=== PATIENT | male | born 1965 | race Caucasian/White ===

== ENCOUNTER 2021-08-08 08:32 | Emergency (ER) | payer SELFPAY ==
[2021-08-08] MEDS ORDERED: methylPREDNISolone Sod Succ/PF 125 MG/2 ML VIAL ONE (09:05)
[2021-08-08] MEDS ORDERED: Morphine 2 MG/ML VIAL ONE (09:38)
[2021-08-08] MEDS ORDERED: Ondansetron PF 4 MG/2 ML Vial ONE (09:38)
[2021-08-08 09:43] LABS: #Monocytes 0.7 10x3/uL (0.0-1.1); #Neutrophils 3.4 10x3/uL (1.5-8.4); %Basophils 0.8 % (0.0-2.0); %Lymphocytes 17.1 % (18.0-47.0); %Monocytes 14.2 % (0.0-10.0); %Neutrophils 67.7 % (40.0-75.0); Hemoglobin 9.6 g/dL (13.5-17.5); Mean Corpuscular HGB CONC 29.1 g/dL (32.0-36.0); Mean Corpuscular Hemoglobin 20.9 pg (27.0-33.0); Mean Corpuscular Volume 71.7 fl (81.2-95.1); Mean Platelet Volume 9.3 fl (7.4-10.4); Platelet Count 378 10x3/uL (150-450); RBC Distribution Width 16.5 % (11.5-14.5); White Blood Cell (WBC) Count 5.1 10x3/uL (3.5-10.5)
[2021-08-08 10:00] LABS: ALT (SGPT) 11 U/L (8-55); AST (SGOT) 13 U/L (5-34); Albumin 3.5 g/dL (3.5-5.0); Alkaline Phosphatase 67 U/L (40-110); Anion Gap 12 mmol/L (10-20); BUN (Urea Nitrogen) 10 mg/dL (8.4-25.7); Bilirubin, Total 0.3 mg/dL (0.2-1.2); Calc. Creatinine Clearance 0 mL/min (70-130); Calcium 8.9 mg/dL (7.8-10.44); Carbon Dioxide 25 mmol/L (22-29); Chloride 103 mmol/L (98-107); Globulin 3.1 g/dL (2.4-3.5); Glucose 93 mg/dL (70-105); Lipase 60 U/L (8-78); Protein, Total 6.6 g/dL (6.0-8.3); Sodium 136 mmol/L (136-145)
[2021-08-08 10:29] LABS: Hypochromia SLIGHT = 6-15 cells (100X) (0-5/hpf); Microcytosis SLIGHT = 6-15 cells (100X) (0-5/hpf); Polychromasia SLIGHT = 2-3 cells (100X) (0-2/hpf)
[2021-08-08 10:30] LABS: Platelet Morphology Comment Appears Adequate
== END 2021-08-08 12:42 | disposition home or self-care (01) ==
LOC: CSHERS 08:32
DX: K51.90 Ulcerative colitis, unspecified, without complications (principal)
CPT/HCPCS: 80053; 83690; 85025; 96374; 96375; J2270; J2405; J2930

== ENCOUNTER 2021-08-29 13:22 | Inpatient (IN) | payer SELFPAY ==
[2021-08-29 14:59] LABS: #Monocytes 0.6 10x3/uL (0.0-1.1); %Basophils 0.3 % (0.0-2.0); %Eosinophils 0.3 % (0.0-6.0); %Lymphocytes 10.2 % (18.0-47.0); %Monocytes 6.9 % (0.0-10.0); Hemoglobin 9.5 g/dL (13.5-17.5); Mean Corpuscular HGB CONC 28.4 g/dL (32.0-36.0); Mean Corpuscular Hemoglobin 20.5 pg (27.0-33.0); Mean Platelet Volume 9.5 fl (7.4-10.4); Platelet Count 247 10x3/uL (150-450); RBC Distribution Width 18.6 % (11.5-14.5); Red Blood Cell (RBC) Count 4.64 10x6/uL (4.32-5.72); White Blood Cell (WBC) Count 8.6 10x3/uL (3.5-10.5)
[2021-08-29 15:10] LABS: INR-International Normal Ratio 0.9; PTT 21.9 sec (22.0-33.0); Prothrombin Time 9.8 sec (9.5-12.1)
[2021-08-29 15:16] LABS: ALT (SGPT) 21 U/L (8-55); AST (SGOT) 24 U/L (5-34); Acetaminophen Less than 10.0 mcg/mL (10.0-30.0); Albumin 3.7 g/dL (3.5-5.0); Alcohol Less than 10 mg/dL (Less than 10); Alkaline Phosphatase 73 U/L (40-110); Anion Gap 11 mmol/L (10-20); BUN (Urea Nitrogen) 10 mg/dL (8.4-25.7); Bilirubin, Total 0.2 mg/dL (0.2-1.2); Calc. Creatinine Clearance 0 mL/min (70-130); Calcium 8.6 mg/dL (7.8-10.44); Carbon Dioxide 26 mmol/L (22-29); Chloride 109 mmol/L (98-107); Globulin 2.8 g/dL (2.4-3.5); Glucose 87 mg/dL (70-105); Potassium 3.9 mmol/L (3.5-5.1); Protein, Total 6.5 g/dL (6.0-8.3); Salicylate Less than 8.0 mg/dL (15.0-30.0); Sodium 142 mmol/L (136-145)
[2021-08-29 15:42] LABS: Amphetamine Not Detected (NotDetected); Barbiturates Screen Not Detected (NotDetected); Benzodiazepine Screen Detected (NotDetected); Cocaine Metabolite Screen Not Detected (NotDetected); Methadone Not Detected (NotDetected); Methamphetamine Not Detected (NotDetected); Opiate Screen Not Detected (NotDetected); Oxycodone Screen Not Detected (NotDetected); Phencyclidine (PCP) Not Detected (NotDetected); THC/Cannabinoid Screen Detected (NotDetected); Tricyclic Screen Not Detected (NotDetected)
[2021-08-29] MEDS ORDERED: HYDROcodone/Acetaminophen 5/325 mg Tablet ONE (18:02)
[2021-08-29] MEDS ORDERED: Ondansetron PF 4 MG/2 ML Vial IVP PRN (18:33)
[2021-08-29] MEDS ORDERED: Acetaminophen 325 MG TAB PO PRN (18:33)
[2021-08-29 20:38] VITALS: BMI 24.3
[2021-08-29] MEDS ORDERED: Atorvastatin Calcium 40 MG TAB PO SCH (21:00)
[2021-08-29] MEDS: sulfaSALAzine 500 MG TAB PO SCH (21:19)
[2021-08-29] MEDS: Famotidine 20 MG TAB PO SCH (21:20)
[2021-08-29] MEDS: HYDROcodone/Acetaminophen 5/325 mg Tablet PO PRN (21:20)
[2021-08-30 04:55] LABS: Hemoglobin 8.4 g/dL (13.5-17.5); Mean Corpuscular HGB CONC 28.6 g/dL (32.0-36.0); Mean Corpuscular Hemoglobin 20.6 pg (27.0-33.0); Mean Corpuscular Volume 72.1 fl (81.2-95.1); Mean Platelet Volume 10.1 fl (7.4-10.4); Platelet Count 245 10x3/uL (150-450); RBC Distribution Width 18.3 % (11.5-14.5); Red Blood Cell (RBC) Count 4.08 10x6/uL (4.32-5.72); White Blood Cell (WBC) Count 7.1 10x3/uL (3.5-10.5)
[2021-08-30 04:57] LABS: Anion Gap 12 mmol/L (10-20); BUN (Urea Nitrogen) 7 mg/dL (8.4-25.7); Calc. Creatinine Clearance 140 mL/min (70-130); Calcium 8.2 mg/dL (7.8-10.44); Carbon Dioxide 23 mmol/L (22-29); Chloride 108 mmol/L (98-107); Glucose 141 mg/dL (70-105); Potassium 3.7 mmol/L (3.5-5.1); Sodium 139 mmol/L (136-145)
[2021-08-30] MEDS: HYDROcodone/Acetaminophen 5/325 mg Tablet PO PRN (06:39)
[2021-08-30] MEDS ORDERED: Ferrous Sulfate 325 MG TAB PO SCH (08:00)
[2021-08-30] MEDS: sulfaSALAzine 500 MG TAB PO SCH ×2 (08:27→14:05)
[2021-08-30] MEDS: Famotidine 20 MG TAB PO SCH (08:27)
[2021-08-30] MEDS ORDERED: Aspirin 81 mg Enteric Coated Tablet PO SCH (09:00)
[2021-08-30] MEDS ORDERED: Folic Acid 1 MG TAB PO SCH (09:00)
[2021-08-30 09:05] VITALS: TEMP 98.1
[2021-08-30 11:41] VITALS: BP 134/79
[2021-08-30] MEDS ORDERED: Ketorolac Tromethamine 30 MG/ML VIAL IVP SCH (13:00)
== END 2021-08-30 16:00 | disposition home or self-care (01) | DRG 312 ==
LOC: CSHERS 13:22 → CSHTELE 20:22 → OBSVTOIN 20:22
PROVIDERS: ADMIT Internal Medicine; ATTEND Internal Medicine
DX: R55 Syncope and collapse (principal); E86.0 Dehydration; F32.A Depression, unspecified; D64.9 Anemia, unspecified; Z87.19 Personal history of other diseases of the digestive system; Z88.1 Allergy status to other antibiotic agents; Z98.42 Cataract extraction status, left eye; Z98.41 Cataract extraction status, right eye
CPT/HCPCS: 36415; 70450; 70551; 71045; 80048; 80053; 80306; 80307; 84484; 85025; 85027; 85610; 85730; 93005; 93306; 93880; 94760; J1885

== ENCOUNTER 2022-01-15 19:50 | Emergency (ER) | payer SELFPAY ==
[~2022-01-15 19:50] MED LIST: Iopamidol 300 61% 100 ML VIAL FS ONE
[2022-01-15 21:10] LABS: Bilirubin Neg (Negative); Blood, Urine Negative (Negative); Clarity Clear (Clear); Glucose, Urine (Dipstick) Normal (Negative); Ketone, Urine Negative (Negative); Leukocyte Negative (Negative); Nitrite Negative (Negative); Protein, Urine (Dipstick) 15 mg/dl (Neg-Trace); Specific Gravity, Urine 1.025 (1.002-1.036); Urobilinogen Normal mg/dL (Less than 2)
[2022-01-15] MEDS ORDERED: Morphine 4 MG/ML VIAL ONE (21:15)
[2022-01-15] MEDS ORDERED: methylPREDNISolone Sod Succ/PF 125 MG/2 ML VIAL ONE (21:15)
[2022-01-15] MEDS ORDERED: Ondansetron PF 4 MG/2 ML Vial ONE (21:16)
[2022-01-15 21:17] LABS: #Basophils 0.1 10x3/uL (0.0-0.2); #Monocytes 0.9 10x3/uL (0.0-1.1); #Neutrophils 6.5 10x3/uL (1.5-8.4); %Basophils 0.7 % (0.0-2.0); %Eosinophils 0.1 % (0.0-6.0); %Lymphocytes 12.4 % (18.0-47.0); %Monocytes 10.6 % (0.0-10.0); Hemoglobin 9.8 g/dL (13.5-17.5); Mean Corpuscular HGB CONC 29.3 g/dL (32.0-36.0); Mean Corpuscular Hemoglobin 21.3 pg (27.0-33.0); Mean Corpuscular Volume 72.5 fl (81.2-95.1); Mean Platelet Volume 9.4 fl (7.4-10.4); Platelet Count 260 10x3/uL (150-450); RBC Distribution Width 22.4 % (11.5-14.5); Red Blood Cell (RBC) Count 4.61 10x6/uL (4.32-5.72); White Blood Cell (WBC) Count 8.6 10x3/uL (3.5-10.5)
[2022-01-15 21:19] LABS: ALT (SGPT) 17 U/L (8-55); AST (SGOT) 25 U/L (5-34); Albumin 4.2 g/dL (3.5-5.0); Alkaline Phosphatase 72 U/L (40-110); Anion Gap 11 mmol/L (10-20); BUN (Urea Nitrogen) 8 mg/dL (8.4-25.7); Bilirubin, Total 0.3 mg/dL (0.2-1.2); Calc. Creatinine Clearance 0 mL/min (70-130); Carbon Dioxide 24 mmol/L (22-29); Chloride 109 mmol/L (98-107); Estimated GFR 93; Globulin 2.9 g/dL (2.4-3.5); Glucose 98 mg/dL (70-105); Protein, Total 7.1 g/dL (6.0-8.3); Sodium 140 mmol/L (136-145)
[2022-01-15 21:56] LABS: Elliptocytes SLIGHT = 2-5 cells (100X) (0-1/hpf); Hypochromia SLIGHT = 6-15 cells (100X) (0-5/hpf); Macrocytosis SLIGHT = 6-15 cells (100X) (0-5/hpf); Microcytosis SLIGHT = 6-15 cells (100X) (0-5/hpf)
[2022-01-15 21:58] LABS: Platelet Morphology Comment Appears Adequate
== END 2022-01-15 22:54 | disposition home or self-care (01) ==
LOC: CSHERS 19:50
DX: K51.90 Ulcerative colitis, unspecified, without complications (principal)
CPT/HCPCS: 74177; 80053; 81003; 85025; 96374; 96375; J2270; J2405; J2930; Q9967

== ENCOUNTER 2022-06-06 10:06 | Emergency (ER) | payer SELFPAY ==
[2022-06-06 10:59] LABS: #Basophils 0.1 10x3/uL (0.0-0.2); #Neutrophils 5.8 10x3/uL (1.5-8.4); %Basophils 0.6 % (0.0-2.0); %Eosinophils 0.5 % (0.0-6.0); %Lymphocytes 15.1 % (18.0-47.0); %Neutrophils 70.7 % (40.0-75.0); Hemoglobin 11.6 g/dL (13.5-17.5); Mean Corpuscular Hemoglobin 28.4 pg (27.0-33.0); Mean Platelet Volume 9.7 fl (7.4-10.4); Platelet Count 335 10x3/uL (150-450); Red Blood Cell (RBC) Count 4.08 10x6/uL (4.32-5.72); White Blood Cell (WBC) Count 8.2 10x3/uL (3.5-10.5)
[2022-06-06] MEDS ORDERED: Morphine 4 MG/ML VIAL ONE (10:59)
[2022-06-06] MEDS ORDERED: Ondansetron PF 4 MG/2 ML Vial ONE (11:00)
[2022-06-06 11:16] LABS: ALT (SGPT) 20 U/L (8-55); AST (SGOT) 22 U/L (5-34); Albumin 3.8 g/dL (3.5-5.0); Alkaline Phosphatase 75 U/L (40-110); Anion Gap 14 mmol/L (10-20); BUN (Urea Nitrogen) 16 mg/dL (8.4-25.7); Bilirubin, Total 0.2 mg/dL (0.2-1.2); Calc. Creatinine Clearance 0 mL/min (70-130); Calcium 8.9 mg/dL (7.8-10.44); Carbon Dioxide 23 mmol/L (22-29); Chloride 107 mmol/L (98-107); Estimated GFR 106; Globulin 2.9 g/dL (2.4-3.5); Glucose 91 mg/dL (70-105); Lipase 34 U/L (8-78); Potassium 4.3 mmol/L (3.5-5.1); Protein, Total 6.7 g/dL (6.0-8.3); Sodium 140 mmol/L (136-145)
== END 2022-06-06 12:30 | disposition home or self-care (01) ==
LOC: CSHERS 10:06
DX: K51.90 Ulcerative colitis, unspecified, without complications (principal); F17.210 Nicotine dependence, cigarettes, uncomplicated
CPT/HCPCS: 80053; 83690; 85025; 96361; 96374; 96375; J2270; J2405

== ENCOUNTER 2022-06-08 17:09 | Emergency (ER) | payer SELFPAY | END 2022-06-08 17:28 | LOC: CSHERS 17:09 | DX: Z02.89 Encounter for other administrative examinations (principal) | CPT/HCPCS: 99283 ==

== ENCOUNTER 2022-12-25 15:37 | Emergency (ER) | payer SELFPAY ==
[2022-12-25 16:54] LABS: #Monocytes 0.4 10x3/uL (0.0-1.1); #Neutrophils 2.4 10x3/uL (1.5-8.4); %Basophils 0.6 % (0.0-2.0); %Lymphocytes 16.3 % (18.0-47.0); %Monocytes 11.4 % (0.0-10.0); %Neutrophils 71.1 % (40.0-75.0); Hematocrit 35.2 % (38.8-50.0); Hemoglobin 10.7 g/dL (13.5-17.5); Mean Corpuscular HGB CONC 30.4 g/dL (32.0-36.0); Mean Corpuscular Hemoglobin 23.8 pg (27.0-33.0); Mean Corpuscular Volume 78.2 fl (81.2-95.1); Mean Platelet Volume 8.4 fl (7.4-10.4); Platelet Count 398 10x3/uL (150-450); RBC Distribution Width 16.1 % (11.5-14.5); White Blood Cell (WBC) Count 3.3 10x3/uL (3.5-10.5)
[2022-12-25 17:13] LABS: ALT (SGPT) 9 U/L (8-55); AST (SGOT) 13 U/L (5-34); Albumin 3.5 g/dL (3.5-5.0); Alkaline Phosphatase 57 U/L (40-110); Anion Gap 13 mmol/L (10-20); BUN (Urea Nitrogen) 9 mg/dL (8.4-25.7); Bilirubin, Total 0.4 mg/dL (0.2-1.2); CK (CPK) 70 U/L (30-200); Calc. Creatinine Clearance 0 mL/min (70-130); Calcium 8.5 mg/dL (7.8-10.44); Carbon Dioxide 25 mmol/L (22-29); Chloride 104 mmol/L (98-107); Estimated GFR 101; Globulin 3.4 g/dL (2.4-3.5); Glucose 90 mg/dL (70-105); Lipase 30 U/L (8-78); Potassium 3.7 mmol/L (3.5-5.1); Protein, Total 6.9 g/dL (6.0-8.3); Sodium 138 mmol/L (136-145)
[2022-12-25] MEDS ORDERED: methylPREDNISolone Sod Succ/PF 125 MG/2 ML VIAL ONE (17:39)
[2022-12-25] MEDS ORDERED: Morphine 4 MG/ML VIAL ONE (17:39)
[2022-12-25 17:43] LABS: Bilirubin Neg (Negative); Blood, Urine Negative (Negative); Clarity Clear (Clear); Glucose, Urine (Dipstick) Normal (Negative); Ketone, Urine Negative (Negative); Leukocyte Negative (Negative); Nitrite Negative (Negative); Protein, Urine (Dipstick) 15 mg/dl (Neg-Trace); Specific Gravity, Urine 1.005 (1.005-1.030); Urobilinogen Normal mg/dL (Less than 2); pH, Urine 6.5 (5.0-9.0)
[2022-12-25 18:01] LABS: Bacteria/HPF Rare-Few HPF (None Seen); CAUTI Indications for Culture Dysuria,urgency,freq; RBC/HPF 0-3 HPF (0-3); Sperm/HPF Rare HPF (None Seen); Squamous Epithelial None Seen HPF (0-3); WBC/HPF 0-3 HPF (0-3)
[2022-12-25 18:02] LABS: Urine Culture Reflex No No
[2022-12-25] MEDS ORDERED: sulfaSALAzine 500 MG TAB PO SCH (18:30)
== END 2022-12-25 20:26 | disposition home or self-care (01) ==
LOC: CSHERS 15:37
DX: K51.90 Ulcerative colitis, unspecified, without complications (principal)
CPT/HCPCS: 74177; 80053; 81001; 82550; 83690; 85025; 96374; 96375; J2270; J2930; Q9967

== ENCOUNTER 2023-10-13 13:19 | Emergency (ER) | payer SELFPAY ==
[2023-10-13 14:36] LABS: %Basophils 0.5 % (0.0-2.0); %Eosinophils 0.3 % (0.0-6.0); %Lymphocytes 13.8 % (18.0-47.0); %Neutrophils 70.2 % (40.0-75.0); Hematocrit 33.4 % (38.8-50.0); Hemoglobin 10.1 g/dL (13.5-17.5); Mean Corpuscular HGB CONC 30.2 g/dL (32.0-36.0); Mean Corpuscular Hemoglobin 21.8 pg (27.0-33.0); Mean Platelet Volume 9.3 fL (7.4-10.4); Platelet Count 400 10x3/uL (150-450); RBC Distribution Width 15.9 % (11.5-14.5); Red Blood Cell (RBC) Count 4.64 10x6/uL (4.32-5.72); White Blood Cell (WBC) Count 6.1 10x3/uL (3.5-10.5)
[2023-10-13 14:37] LABS: #Basophils 0.03 10x3/uL (0.0-0.2); #Eosinphils 0.02 10x3/uL (0.0-0.5); #Monocytes 0.91 10x3/uL (0.0-1.1); #Neutrophils 4.26 10x3/uL (1.5-8.4)
[2023-10-13 15:04] LABS: ALT (SGPT) 8 U/L (8-55); AST (SGOT) 11 U/L (5-34); Albumin 3.1 g/dL (3.5-5.0); Alkaline Phosphatase 76 U/L (40-110); Anion Gap 12 mmol/L (10-20); BUN (Urea Nitrogen) 8 mg/dL (8.4-25.7); Bilirubin, Total 0.3 mg/dL (0.2-1.2); Calc. Creatinine Clearance 0 mL/min (70-130); Calcium 8.8 mg/dL (7.8-10.44); Carbon Dioxide 26 mmol/L (22-29); Chloride 105 mmol/L (98-107); Estimated GFR 101; Globulin 3.6 g/dL (2.4-3.5); Glucose 107 mg/dL (70-105); Potassium 3.8 mmol/L (3.5-5.1); Protein, Total 6.7 g/dL (6.0-8.3); Sodium 139 mmol/L (136-145)
[2023-10-13 15:15] LABS: Lipase 43 U/L (8-78)
[2023-10-13 15:31] LABS: Hypochromia SLIGHT = 6-15 cells (100X) (0-5/hpf); Microcytosis SLIGHT = 6-15 cells (100X) (0-5/hpf); Platelet Adequacy Comment Appears Adequate; Polychromasia SLIGHT = 2-3 cells (100X) (0-2/hpf)
[2023-10-13] MEDS ORDERED: HYDROcodone/Acetaminophen 10/325 mg Tablet ONE (15:59)
[2023-10-13] MEDS ORDERED: methylPREDNISolone Sod Succ/PF 125 MG/2 ML VIAL ONE (15:59)
== END 2023-10-13 18:57 | disposition home or self-care (01) ==
LOC: CSHERS 13:19
DX: K51.90 Ulcerative colitis, unspecified, without complications (principal); G40.909 Epilepsy, unspecified, not intractable, without status epilepticus
CPT/HCPCS: 74177; 80053; 83605; 83690; 83735; 85025; 86140; 93005; 96361; 96374; J2930

== ENCOUNTER 2023-10-15 15:03 | Emergency (ER) | payer SELFPAY ==
[2023-10-15] MEDS ORDERED: Ketorolac Tromethamine 30 MG (1 mL) VIAL ONE (15:30)
[2023-10-15 16:14] LABS: #Basophils 0.01 10x3/uL (0.0-0.2); #Monocytes 0.41 10x3/uL (0.0-1.1); #Neutrophils 5.52 10x3/uL (1.5-8.4); %Basophils 0.2 % (0.0-2.0); %Lymphocytes 4.2 % (18.0-47.0); %Monocytes 6.6 % (0.0-10.0); %Neutrophils 88.5 % (40.0-75.0); Hematocrit 34.3 % (38.8-50.0); Hemoglobin 10.6 g/dL (13.5-17.5); Mean Corpuscular HGB CONC 30.9 g/dL (32.0-36.0); Mean Corpuscular Hemoglobin 22.2 pg (27.0-33.0); Mean Corpuscular Volume 71.8 fL (81.2-95.1); Mean Platelet Volume 9.4 fL (7.4-10.4); Platelet Count 449 10x3/uL (150-450); RBC Distribution Width 16.3 % (11.5-14.5); Red Blood Cell (RBC) Count 4.78 10x6/uL (4.32-5.72); White Blood Cell (WBC) Count 6.2 10x3/uL (3.5-10.5)
[2023-10-15 16:18] LABS: ALT (SGPT) 14 U/L (8-55); AST (SGOT) 19 U/L (5-34); Albumin 3.6 g/dL (3.5-5.0); Alkaline Phosphatase 87 U/L (40-110); Anion Gap 15 mmol/L (10-20); BUN (Urea Nitrogen) 18 mg/dL (8.4-25.7); Bilirubin, Total 0.2 mg/dL (0.2-1.2); Calc. Creatinine Clearance 0 mL/min (70-130); Calcium 8.9 mg/dL (7.8-10.44); Carbon Dioxide 24 mmol/L (22-29); Chloride 109 mmol/L (98-107); Estimated GFR 79; Globulin 3.5 g/dL (2.4-3.5); Glucose 162 mg/dL (70-105); Lipase 38 U/L (8-78); Potassium 4.3 mmol/L (3.5-5.1); Protein, Total 7.1 g/dL (6.0-8.3); Sodium 144 mmol/L (136-145)
== END 2023-10-15 18:00 | disposition home or self-care (01) ==
LOC: CSHERS 15:03
DX: K51.90 Ulcerative colitis, unspecified, without complications (principal); D64.9 Anemia, unspecified
CPT/HCPCS: 80053; 83690; 85025; 86140; 96374; J1885

== ENCOUNTER 2023-10-16 09:23 | Emergency (ER) | payer SELFPAY | END 2023-10-16 11:30 | disposition home or self-care (01) | LOC: CSHERS 09:23 | DX: F33.9 Major depressive disorder, recurrent, unspecified (principal) | CPT/HCPCS: 99283 ==

== ENCOUNTER 2023-10-22 18:21 | Emergency (ER) | payer SELFPAY ==
[2023-10-22 19:33] LABS: #Basophils 0.02 10x3/uL (0.0-0.2); #Eosinphils 0.01 10x3/uL (0.0-0.5); #Monocytes 1.21 10x3/uL (0.0-1.1); #Neutrophils 9.61 10x3/uL (1.5-8.4); %Basophils 0.2 % (0.0-2.0); %Eosinophils 0.1 % (0.0-6.0); %Lymphocytes 15.7 % (18.0-47.0); %Monocytes 9.3 % (0.0-10.0); Hematocrit 32.3 % (38.8-50.0); Hemoglobin 9.9 g/dL (13.5-17.5); Mean Corpuscular HGB CONC 30.7 g/dL (32.0-36.0); Mean Corpuscular Hemoglobin 21.8 pg (27.0-33.0); Mean Platelet Volume 9.4 fL (7.4-10.4); Platelet Count 349 10x3/uL (150-450); RBC Distribution Width 16.8 % (11.5-14.5); Red Blood Cell (RBC) Count 4.55 10x6/uL (4.32-5.72)
[2023-10-22 19:39] LABS: PTT 24.6 sec (22.0-33.0); Prothrombin Time 10.6 sec (9.5-12.1)
[2023-10-22 19:42] LABS: ALT (SGPT) 29 U/L (8-55); AST (SGOT) 35 U/L (5-34); Albumin 3.1 g/dL (3.5-5.0); Alkaline Phosphatase 62 U/L (40-110); Anion Gap 13 mmol/L (10-20); BUN (Urea Nitrogen) 8 mg/dL (8.4-25.7); Bilirubin, Total 0.3 mg/dL (0.2-1.2); Calc. Creatinine Clearance 0 mL/min (70-130); Calcium 8.2 mg/dL (7.8-10.44); Carbon Dioxide 22 mmol/L (22-29); Chloride 109 mmol/L (98-107); Estimated GFR 102; Glucose 102 mg/dL (70-105); Potassium 3.5 mmol/L (3.5-5.1); Protein, Total 6.1 g/dL (6.0-8.3); Sodium 140 mmol/L (136-145)
[2023-10-22] MEDS ORDERED: CeleCOXIB 100 MG CAP PO SCH (20:00)
[2023-10-22] MEDS ORDERED: Loperamide HCl 2 MG CAP ONE (20:31)
[2023-10-22 20:54] LABS: Anisocytosis SLIGHT = 6-15 cells (100X) (0-5/hpf); Hypochromia SLIGHT = 6-15 cells (100X) (0-5/hpf); Microcytosis SLIGHT = 6-15 cells (100X) (0-5/hpf); Poikilocytosis SLIGHT = 6-15 cells (100X) (0-5/hpf)
[2023-10-22 20:55] LABS: Elliptocytes SLIGHT = 2-5 cells (100X) (0-1/hpf); Ovalocytes SLIGHT = 2-5 cells (100X) (0-1/hpf)
[2023-10-22 20:56] LABS: Platelet Adequacy Comment Appears Adequate
== END 2023-10-22 22:00 | disposition home or self-care (01) ==
LOC: CSHERS 18:21
DX: K51.90 Ulcerative colitis, unspecified, without complications (principal); Z75.3 Unavailability and inaccessibility of health-care facilities
CPT/HCPCS: 80053; 82274; 85025; 85610; 85730; 99284

== ENCOUNTER 2024-02-24 10:33 | Emergency (ER) | payer SELFPAY ==
[2024-02-24 12:26] LABS: #Basophils 0.02 10x3/uL (0.0-0.2); #Monocytes 0.65 10x3/uL (0.0-1.1); #Neutrophils 2.59 10x3/uL (1.5-8.4); %Basophils 0.5 % (0.0-2.0); %Lymphocytes 17.8 % (18.0-47.0); %Monocytes 16.3 % (0.0-10.0); %Neutrophils 64.9 % (40.0-75.0); Hematocrit 31.3 % (38.8-50.0); Mean Corpuscular HGB CONC 28.8 g/dL (32.0-36.0); Mean Corpuscular Hemoglobin 19.9 pg (27.0-33.0); Mean Corpuscular Volume 69.1 fL (81.2-95.1); Mean Platelet Volume 8.7 fL (7.4-10.4); Platelet Count 481 10x3/uL (150-450); Red Blood Cell (RBC) Count 4.53 10x6/uL (4.32-5.72)
[2024-02-24 12:39] LABS: ALT (SGPT) 8 U/L (8-55); AST (SGOT) 11 U/L (5-34); Albumin 2.4 g/dL (3.5-5.0); Alkaline Phosphatase 45 U/L (40-110); Anion Gap 12 mmol/L (10-20); BUN (Urea Nitrogen) 6 mg/dL (8.4-25.7); Bilirubin, Total 0.3 mg/dL (0.2-1.2); Calc. Creatinine Clearance 0 mL/min (70-130); Calcium 8.4 mg/dL (7.8-10.44); Carbon Dioxide 28 mmol/L (22-29); Chloride 99 mmol/L (98-107); Estimated GFR 103; Globulin 3.7 g/dL (2.4-3.5); Glucose 87 mg/dL (70-105); Lipase 16 U/L (8-78); Magnesium 1.9 mg/dL (1.6-2.6); Protein, Total 6.1 g/dL (6.0-8.3); Sodium 136 mmol/L (136-145)
[2024-02-24] MEDS ORDERED: Ondansetron PF 4 MG/2 ML Vial ONE (12:49)
[2024-02-24] MEDS ORDERED: Morphine 4 MG/ML VIAL ONE (12:49)
[2024-02-24 12:56] LABS: Hypochromia SLIGHT = 6-15 cells (100X) (0-5/hpf); Microcytosis SLIGHT = 6-15 cells (100X) (0-5/hpf)
[2024-02-24] MEDS ORDERED: predniSONE 20 MG TAB ONE (15:19)
[2024-02-24] MEDS ORDERED: Potassium Chloride 20 MEQ TAB ONE (16:22)
== END 2024-02-24 18:01 | disposition home or self-care (01) ==
LOC: CSHERS 10:33
DX: K51.90 Ulcerative colitis, unspecified, without complications (principal)
CPT/HCPCS: 71045; 71260; 74177; 80053; 82274; 83690; 83735; 83880; 85025; 86850; 86870; 86900; 86901; 86922; 96361; 96374; 96375; J2272; J2405; J7512